=== PATIENT | male | born 1980 | race Caucasian/White ===

== ENCOUNTER 2017-08-26 17:18 | Emergency (ER) | payer OTHER ==
[~2017-08-26] VITALS: Ht 193 cm; Wt 116.4 kg
[2017-08-26 17:27] VITALS: Ht 193 cm; Wt 116.4 kg
[2017-08-26] MEDS ORDERED: BUPIVACAINE 0.5 % 5 MG/1 ML MPF 30ML VIAL INFIL STA (17:57)
[2017-08-26] MEDS ORDERED: XYLOCAINE 1%/SOD BICARB 20 ML VIAL INFIL STA (17:57)
--- NOTE | 2017-08-26 18:05 | EMERGENCY ROOM VISIT NOTE ---
ED Visit Note First contact with patient: 17:50 CHIEF COMPLAINT: Left ring finger laceration HISTORY OF PRESENT ILLNESS: This pazoc-lyhe-ulocsywh 37-year-old male patient presents to the emergency department approximately 2 hours after cutting the left ring finger while at work. The patient works at [employer]. The patient states he was closing a rolling door which his finger got caught in. As the door was closing, it sliced through the dorsal/medial aspect of the ring finger, lifting up the fingernail and slicing through the nailbed. The bleeding has not stopped. Denies weakness or numbness of the finger. The patient has full range of motion of the fingers. The patient rates the pain as minimal and 0 /10. The patient denies any other injuries. The patient's tetanus shot is not up to date. REVIEW OF SYSTEMS: A 6 system review of systems was completed with positives and pertinent negatives listed in the HPI. ALLERGIES: None MEDICATIONS: None PMH: None SOCIAL HISTORY: The patient lives locally with family. He denies drug, alcohol , tobacco use. PHYSICAL EXAM: Vital Signs: Reviewed Nurse's notes, vital signs stable. GENERAL : This is a 37-year-old white male, in no acute distress, well developed, well nourished. SKIN: There is a 3 cm long laceration on the dorsal aspect of the left ring finger, extending from the lateral aspect of the fingernail, through the nailbed, and around to the medial/anterior aspect of the finger. The edges gape apart with traction. There is no foreign material in the wound and it looks clean. There is minimal active bleeding. No deep structures such as tendons, bones, or significant blood vessels are seen in the base of the wound. Extension and flexion of the finger is full and strong. Full range of motion of the wrist and other fingers. Capillary refill less than 2 seconds. Normal sensation to light and sharp touch. RADIOLOGY: R FINGER(S) MIN 2 VIEWS ROUTINE CLINICAL HISTORY: right 4th finger laceration trauma. Pain. COMPARISON: None. DISCUSSION: Comminuted fracture of the mid to distal aspect of the left fourth finger distal phalanx. Considerable soft tissue disruption. Osseous fragments are distracted. No evidence dislocation. IMPRESSION: Comminuted fracture mid and distal aspects distal phalanx left fourth finger. 2. Associated soft tissue disruption. The above report was generated using voice recognition software. It may contain grammatical, syntax or spelling errors. Electronically signed by: Kevin Rucker M.D. 08/26/2017 6:05 PM Dictated Date/Time: 08/26/2017 6:04 PM EMERGENCY DEPARTMENT COURSE: I examined the patient. X-ray obtained and reviewed by myself and radiologist as above showing an open fracture of the distal phalanx. I discussed these results with the patient at bedside. Verbal consent was obtained to perform the procedure. Using sterile technique the wound was cleansed with Betadine. 6 ml of 1% buffered lidocaine and 0.5% Bupivacaine was used to perform a digital block to anesthetize the patient. The area was sterilely draped. Once the patient was anesthetized, the wound was copiously irrigated under pressure with sterile saline. The wound was explored and there were no deep structures injured. The nailbed laceration was repaired using 5 simple interrupted 5-0 Vicryl sutures. The laceration surrounding the nailbed was repaired using 11 total simple interrupted 5-0 nylon sutures. The nail was tacked back onto the nailbed with 4 simple interrupted 4-0 nylon sutures. The patient tolerated the procedure well. Hemostasis was achieved. The area was cleaned with sterile saline and dressed with bacitracin ointment and bandage. The patient was given a tetanus booster. He was given his first dose of Keflex and a homepack. Discharge instructions reviewed. I stressed the need for orthopedic follow-up with the patient multiple times. The patient was discharged home in good condition. I attest that I have personally reviewed the patient's current medication list. Blood Pressure Screening: Patient was found to have a slightly elevated blood pressure due to circumstances. I do not believe that the patient requires hypertension monitoring. Differential diagnosis: finger laceration, fracture, open fracture, contusion, avulsion, and others DIAGNOSIS: Open fracture of the distal phalanx of the left 4th digit. Current/Historical Medications Scheduled Sulfa/Trimethoprim (Bactrim Ds 800MG/160MG), 1 TAB PO BID Allergies Coded Allergies: No Known Allergies (Unverified , 08/26/17) Vital Signs Date Time Temp Pulse Resp B/P (MAP) Pulse Ox O2 Delivery O2 Flow Rate FiO2 08/26/17 20:03 80 16 145/88 99 08/26/17 17:27 37.0 146 18 150/86 97 Room Air Medications Administered Medications (Trade) Dose Ordered Sig/Madonna Route Start Time Stop Time Status Last Admin Dose Admin Lidocaine HCl (Buffered Lidocaine 1% Inj) 20 ml ONE STAT INFIL 08/26/17 17:57 08/26/17 17:58 DC 08/26/17 19:16 20 ML Bupivacaine HCl (Marcaine 0.5% MPF Inj) 30 ml NOW STAT INFIL 08/26/17 17:57 08/26/17 17:58 DC 08/26/17 19:16 30 ML Diphtheria/ Pertussis/Tetanus Vacc (Adacel Inj) 0.5 ml ONCE ONCE IM. 08/26/17 18:15 08/26/17 18:16 DC 08/26/17 19:39 0.5 ML Cephalexin Monohydrate (Keflex Cap) 500 mg NOW STAT PO 08/26/17 19:42 08/26/17 19:44 DC 08/26/17 19:57 500 MG Cephalexin Monohydrate (Keflex 500MG Home Pack) 1 homepack NOW STAT PO 08/26/17 19:42 08/26/17 19:44 DC 08/26/17 19:56 1 HOMEPACK Departure Information Impression Primary Impression: Laceration of finger Additional Impression: Open fracture of finger of left hand Dispostion Home / Self-Care Condition GOOD Prescriptions Sulfa/Trimethoprim (Bactrim Ds 800MG/160MG) Tab 1 TAB PO BID for 10 Days, #20 TAB Prov: Laura Monte PA-C 08/26/17 Referrals No Doctor, Assigned (PCP) Charlie Workman, DO Patient Instructions ED Fx Finger Open, ED Laceration Ext Sutr Stap Tape, [facility] Additional Instructions You were seen in the ED today for an open fracture of the left ring finger. This was washed with sterile saline solution and repaired with sutures. Please leave the bandage and splint in place until advised otherwise by orthopedics. You have received 15 sutures on your left ring ringer. 11 are through the laceration and 4 are to tack the nail back over top of the nailbed. These sutures are NOT dissolvable and WILL need to be removed by a health care provider in 14 days. This should be handled by orthopedics, however, you can return to the Emergency Department if necessary. There are 5 absorbable sutures to repair the nailbed which will not need to be removed. Cephalexin(Keflex) 500mg: Take one pill four times daily for 10 days for your skin infection. All antibiotics can cause diarrhea. If this occurs and you feel worse or it does not resolve in 1-2 days follow up with your doctor or return to the Emergency Department as this could be signs of serious underlying problems. Any medication can cause an allergic reaction, stop the pills immediately and return to the ER for rash, hives, breathing difficulties, or swelling. Proper wound care is essential for adequate wound healing and infection prevention. You can shower and clean the wound with soap and water. Do not scour over the wound, pat dry with a towel. Do not submerse the wound (i.e. bathe or dish wash) until the sutures have been removed. You can use an antibiotic ointment with a dressing over the wound for the next 3-4 days. After this time you may leave the wound dry and open to the air. If crust develops over the wound you can use a Q-tip to apply a 1:1 peroxide:water solution to clean the wound. Look for signs of infection of the wound including: increased pain, swelling, foul discharge, streaking, or increased temperature. If any of these are noticed you should return to the Emergency Department for further assessment and treatment. As with any laceration you may have received nerve damage to the surrounding tissues. This damage may or may not be permanent. You should keep the area covered with sunscreen for the first 6 months to 1 year when at risk for exposure to help minimize scarring. You can also use scar reducing creams or Vitamin E oil to help minimize scarring. For pain control, you can use the following nvvi-ear-glihfsy medicines (if >12 yo): Ibuprofen(Motrin, Advil) may be used for fever or pain. Use 600mg every six hours as needed. Take with food. Avoid using more than 2400mg in a 24 hour period. Do not use 2400mg per day for more than three consecutive days without physician direction. Prolonged inappropriate use can lead to stomach upset or ulcers. (AND/OR) Acetaminophen(Tylenol) may be used for fever or pain. Use 1000mg every six hours as needed. Avoid using more than 3000mg in a 24 hour period. You MUST follow-up with orthopedics regarding ongoing management and care. Please contact [facility] at the number provided. Return to the emergency department if your symptoms worsen despite treatment course outlined above. Problem Qualifiers Primary Impression: Laceration of finger Encounter type: initial encounter Finger: ring finger Damage to nail status : with damage Foreign body presence: without foreign body Laterality: left Qualified Codes: S61.315A - Laceration without foreign body of left ring finger with damage to nail, initial encounter Additional Impression: Open fracture of finger of left hand Encounter type: initial encounter Finger: ring finger Phalanx: distal Fracture alignment: displaced Qualified Codes: S62.635B - Displaced fracture of distal phalanx of left ring finger, initial encounter for open fracture
[2017-08-26] MEDS ORDERED: DIPHTHERIA/TETANUS/PERTUSSIS 0.5 ML SYR/VIAL IM. ONE (18:15)
[2017-08-26] MEDS ORDERED: CEPHALEXIN MONOHYDRATE 250 MG CAP PO STA (19:42)
[2017-08-26] MEDS ORDERED: CEPHALEXIN 500MG HOME PACK 1 EA BTL PO STA (19:42)
[2017-08-26 20:03] VITALS: BP 145/88; PULSE 80; O2SAT 99
[2017-08-26] MEDS ORDERED: SULF800T23 PO (20:58)
== END 2017-08-26 20:03 | disposition home or self-care (01) ==
LOC: C.EDB 17:22 → C.EDD 20:03
DX: S62.635B Displaced fracture of distal phalanx of left ring finger, initial encounter for open fracture (principal); W23.0XXA Caught, crushed, jammed, or pinched between moving objects, initial encounter; Y99.0 Civilian activity done for income or pay; Y92.89 Other specified places as the place of occurrence of the external cause